=== PATIENT | female | born 1975 | race African-American/Black ===

== ENCOUNTER 2016-08-22 22:01 | Emergency (ER) ==
[2016-08-22 22:41] LABS: URINE SOURCE CLEAN CATCH
[2016-08-22 22:53] LABS: MANUAL DIFF NEEDED? NO
--- NOTE | 2016-08-22 22:54 | PROVIDER DOCUMENTATION ---
HPI-Abdominal Pain/GI Problem - General Chief Complaint: Abdominal Pain Stated Complaint: ABD PAIN Time Seen by Provider: 08/22/16 22:48 Allergies/Adverse Reactions: Patient Allergies Allergy/AdvReac Type Severity Reaction Status Date / Time No Known Allergies Allergy Verified 08/22/16 22:12 Home Medications: Home Medication List Medication Instructions Recorded Confirmed Last Taken Type No Home Medications 08/22/16 08/22/16 Unknown History - History of Present Illness-ABD Nature of Presenting Problems: 41 yof c/o Abd pain that started earlier today and has continued to get worse. Pt took laxative earlier and drank some warm apple cidar vinegar and honey with no results. Pt had a BM earlier today. Pt describes pain as a squeezing pain to the abdomen. Abdominal Pain Onset Location: reports: RUQ, epigastric Pain Radiation: reports: back Quality of Pain: reports: sharp, stabbing Severity in ED: reports: moderate Onset/Duration: reports: 3 days ago Timing: reports: still present, getting worse Activities at Onset: reports: none Exposure to sick contacts?: No Modifying Factors: improves with: nothing Associated Symptoms: reports: nausea, vomiting Last BM: this morning Dark Stools Present?: reports: none noticed Rectal Bleeding: reports: none Rectal Pain: reports: none Emesis Description: reports: none Bruising or Bleeding Gums?: No Similar Symptoms Previously?: No Recently seen or treated by another doctor?: No Review of Systems - Adult - REVIEW OF SYSTEMS - ADULT Constitutional: reports: see HPI. denies: no symptoms reported, chills, fever, fatique, night sweats, weight gain, weight loss, other Eyes: reports: no symptoms reported. denies: see HPI, discharge, dry eyes, decreased vision, blurred vision, double vision, eye pain, redness, other Ears, Nose, Mouth & Throat: reports: no symptoms reported. denies: see HPI, ear discharge, ear pain, hearing loss, tinnitus, epistaxis, sinus problem, nose pain, loose teeth, mouth/dental pain, mouth swelling, hoarseness, throat pain, throat swelling, other Cardiovascular: reports: no symptoms reported. denies: see HPI, chest pain, edema, heart murmur, irregular heart rate, orthopnea, palpitations, poor circulation, PND, syncope, other Respiratory: reports: no symptoms reported. denies: see HPI, chronic cough, cough, dyspnea on exertion, excessive sputum production, hemoptysis, pleurisy, shortness of breath, wheezing, other Gastrointestinal: reports: see HPI, abdominal pain. denies: no symptoms reported, hematemesis, constipation, diarrhea, difficulty swallowing, frequent heartburn, nausea, poor appetite, rectal bleeding, vomiting, other Genitourinary: reports: no symptoms reported. denies: see HPI, dysuria, discharge, frequency, flank pain, frequent UTI's, hematuria, hesitency, incontinence, urinary retention, urgency, other Musculoskeletal: reports: no symptoms reported. denies: see HPI, bone pain, back pain, frequent leg cramps, joint pain, joint swelling, muscle aches, muscle weakness, neck pain, other All Other Systems: Reviewed and Negative Past History - Adult - PAST MEDICAL HISTORY-ADULT Review of Records: reports: Old Records Reviewed, Nursing Assessment Review, Medications Reviewed, Social history reviewed & non-contributory. Major Childhood Illnesses: reports: denies history Cardiovascular: reports: denies history Respiratory: reports: denies history Gastrointestinal: reports: denies history Obstetrical/Gynecological: reports: denies history Genitourinary: reports: denies history Musculoskeletal: reports: denies history Neurological: reports: denies history Psychiatric: reports: denies history Endocrine/Immune: reports: denies history Other Conditions: reports: denies history - PRIOR SURGERIES/PROCEDURES Surgical/Procedure History: reports: other () - PRIOR HOSPITALIZATIONS Prior Hospitalizations: reports: for other non-related - IMMUNIZATION STATUS Childhood Immunizations: See Nurse Assessment Flu Vaccine: See Nurse Assessment - FAMILY HISTORY Family History: other (not contributory) Physical Exam-General - PHYSICAL EXAM-ADULT Initial Vital Signs Reviewed: Yes - CONSTITUTIONAL General Appearance: appears well, alert, no apparent distress. negative: mild distress, moderate distress, severe distress, cachetic, obese, thin, anxious, lethargic, slow to respond, obtunded, combative, other - EYES Eyes: PERRL/EOMI, pink conjunctivae. negative: fundi clear, no AV nicking, anisocoria, conjuctival exudate, EOM palsy, meningismus, pale conjunctivae, photophobia, sclera injected, scleral icterus, subconjunctival hemorrhage, sunken eyes, other - HEAD, EARS, NOSE, MOUTH & THROAT HENMT: normocephalic/atraumatic, moist mucous membranes, normal ENT inspection, TMs normal, pharynx normal. negative: angioedema, dental decay, hearing deficit , pharyngeal erythema, tonsillar exudate, TM abnormal, TM obscurred by cerumen, frontal tenderness, maxillary tenderness, other - NECK Neck: non-tender, full range of motion, supple, normal inspection. negative: Brudzinski's sign, carotid bruit, C-spine tenderness, limited range of motion, lymphadenopathy, meningismus, trachial deviation, tender lateral, tender midline , thyromegaly, other - RESPIRATORY Respiratory: chest non-tender, lungs clear, normal breath sounds, no pleuratic chest pain, no respiratory distress, no accessory muscle use. negative: respiratory distress, decreased breath sounds, accessory muscle use, crackles, rales, rhonchi, stridor, wheezing, dull on percussion, prolonged expiration, pain on inspiration, plerual rub, retractions, splinting, decreased rate, increased rate, crepitus, other - CARDIOVASCULAR Cardiovascular: normal peripheral pulses, regular rate, rhythm, no edema, no gallop, no JVD, no murmur. negative: JVD, bradycardia, tachycardia, diastolic murmur, systolic murmur, gallop/S3, gallop/S4, extra beats, friction rub, irregularly irregular, PMI displaced laterally, other - CHEST (BREASTS) Chest/Breast: deferred. negative: normal breast inspection, no masses/lumps, no tenderness, nipple discharge, tenderness, mass/lump noted, other - GASTROINTESTINAL (ABDOMEN) Abdominal Exam: normal bowel sounds, soft, no organomegaly, no pulsatile mass, tenderness, McBurney's point tenderness. negative: non tender, abdominal bruit , abnormal bowel sounds, distended, guarding, rigid, rebound, hernia, mass, hepatomegaly, spleenomegaly, Peterson's sign, obturator sign, prominent aortic pulsations, psoas, Rovsing's sign, other - GENITOURINARY Female Genitalia/Pelvic Exam: deferred Rectal Exam: deferred - LYMPHATIC Lymphatic: no adenopathy - MUSCULOSKELETAL Back Exam: normal inspection, no CVA tenderness, no vertebral tenderness. negative: CVA tenderness, decreased range of motion, ecchymosis, kyphosis, lordosis, muscle spasm, scoliosis, swelling, vertebral tenderness, other Extremity: normal range of motion, non-tender, normal gait, normal inspection, no pedal edema, no calf tenderness, normal capillary refill. negative: pelvis stable, abnormal NV exam, calf tenderness, deformity, erythema, inflammation, joint effusion, pulse deficit, pedal edema, slow capillary refill, swelling, tenderness, other - SKIN Integumentary: normal color, normal turgor, warm/dry. negative: abrasion(s), blanching, cyanosis, diaphoresis, decubitus, dependent lividity, ecchymosis, embolic lesions, erythema, signs of IVDA, jaundice, laceration(s), mottled, pallor, petechiae, purpura, rash, swelling, tenderness, warm, zoster-like rash, other - NEUROLOGIC Neurologic: grossly normal - PSYCHIATRIC Psych/Mental Status: oriented x 3 Progress - PLAN OF CARE/RESULTS Progress/Plan/Lab Results: Laboratory Tests 08/22/16 08/22/16 08/22/16 21:16 22:50 22:50 WBC 15.40 H RBC 4.58 Hgb 12.9 Hct 39.0 MCV 85.2 MCH 28.2 MCHC 33.1 RDW Std Deviation 13.6 Plt Count 393 MPV 9.7 Immature Gran % (Auto) 0.3 Neut % (Auto) 68.5 Lymph % (Auto) 23.0 [place] % (Auto) 6.4 Eos % (Auto) 1.4 Baso % (Auto) 0.4 Immature Gran # (Auto) 0.04 Neut # (Auto) 10.56 H Lymph # (Auto) 3.[address] [place] # (Auto) 0.99 H Eos # (Auto) 0.21 Baso # (Auto) 0.06 Sodium 139 Potassium 4.1 Chloride 102 Carbon Dioxide 27 Anion Gap 10 BUN 10 Creatinine 0.8 Estimated GFR/1.73 m2 > 60 BUN/Creatinine Ratio 13 Glucose 92 Calculated Osmolality 276 Calcium 9.4 Total Bilirubin 0.50 AST 42 H ALT 25 Alkaline Phosphatase 123 H Total Protein 7.0 Albumin 4.5 Globulin 3.0 Albumin/Globulin Ratio 2.0 Amylase 55 Lipase 23 Urine Source CLEAN CATCH Urine Color YELLOW Urine Clarity CLEAR Urine pH 7.0 Ur Specific [place] 1.010 Urine Protein NEGATIVE Urine Ketones NEGATIVE Urine Blood NEGATIVE Urine Nitrite NEGATIVE Urine Bilirubin NEGATIVE Urine Urobilinogen NORMAL Urine Microscopic RBC <10 Urine WBC TRACE A Urine Microscopic WBC <10 Ur Epithelial Cells <10 Urine Bacteria 2+ Urine Glucose NEGATIVE Orders Category Date Time Status NPO Diet 08/22/16 22:[address] ABD/PELVIS W/ IV CONT ONLY [CT] Stat Exams 08/22/16 22:54 Taken AMYLASE [CHEM] Stat Lab 08/22/16 22:50 Completed CBC WITH ELECTRONIC DIFF [HEME] Stat Lab 08/22/16 22:50 Completed COMPREHENSIVE METABOLIC PANEL [CHEM] Stat Lab 08/22/16 22:50 Completed LIPASE [CHEM] Stat Lab 08/22/16 22:[address] W/POSS RFLX CULT [URINALYSIS] Stat Lab 08/22/16 21:16 Completed URINE CULTURE [RM] Routine Lab 08/22/16 23:02 Ordered Hydromorphone [Dilaudid] Med 08/23/16 00:41 Discontinued 1 mg IV NOW ONE Ondansetron [Zofran] Med 08/23/16 00:41 Discontinued 4 mg IV NOW ONE Piperacil/Tazobact 3.375 gm/Ns [Zosyn 3.375 gm/Ns] 50 Med 08/23/16 00:19 Discontinued ml IV NOW Vital Signs Temp Pulse Resp BP Pulse Ox 08/23/16 00:25 97.3 F L 81 18 159/101 100 08/22/16 22:10 97.6 F 94 H 16 142/96 100 No Known Allergies Allergy (Verified 08/22/16 22:12) No Home Medications 08/22/16 Dietary Diet NPO Start TueAug 22 2212 Laboratory 08/22/16 08/22/16 08/22/16 22:50 22:50 21:16 WBC 15.40 H RBC 4.58 Hgb 12.9 Hct 39.0 MCV 85.2 MCH 28.2 MCHC 33.1 RDW Std Deviation 13.6 Plt Count 393 MPV 9.7 Immature Gran % (Auto) 0.3 Neut % (Auto) 68.5 Lymph % (Auto) 23.0 [place] % (Auto) 6.4 Eos % (Auto) 1.4 Baso % (Auto) 0.4 Immature Gran # (Auto) 0.04 Neut # (Auto) 10.56 H Lymph # (Auto) 3.[address] [place] # (Auto) 0.99 H Eos # (Auto) 0.21 Baso # (Auto) 0.06 Sodium 139 Potassium 4.1 Chloride 102 Carbon Dioxide 27 Anion Gap 10 BUN 10 Creatinine 0.8 Estimated GFR/1.73 m2 > 60 BUN/Creatinine Ratio 13 Glucose 92 Calculated Osmolality 276 Calcium 9.4 Total Bilirubin 0.50 AST 42 H ALT 25 Alkaline Phosphatase 123 H Total Protein 7.0 Albumin 4.5 Globulin 3.0 Albumin/Globulin Ratio 2.0 Amylase 55 Lipase 23 Urine Source CLEAN CATCH Urine Color YELLOW Urine Clarity CLEAR Urine pH 7.0 Ur Specific [place] 1.010 Urine Protein NEGATIVE Urine Ketones NEGATIVE Urine Blood NEGATIVE Urine Nitrite NEGATIVE Urine Bilirubin NEGATIVE Urine Urobilinogen NORMAL Urine Microscopic RBC <10 Urine WBC TRACE A Urine Microscopic WBC <10 Ur Epithelial Cells <10 Urine Bacteria 2+ Urine Glucose NEGATIVE - CT/MRI 1 CT Study: Abdomen Impression: Abnormal (Probable cholecystitis. Per radiologist.) - CONSULTS/PCP/HOSPITALIST Notification #1 *Consult/PCP/Hospitalist*: transfer Center Time Discussed: 00:45 Reason/Comments: Dr. Lunsford Consult Disposition: other (Transfer) Departure - Departure Time of Disposition Order: 00:58 DIAGNOSIS: Cholecystitis Disposition: OTHER 70 Certified Medical Emergency: Emergent Condition: Stable Referrals: None,PCP [Primary Care Provider] - Forms: Return to School/Parent Work Attestation - Physician/ NIKO Attestation Patient care was provided by Advanced Practice Provider:: Yes Advanced Practice Provider:: Minh Watt Advanced Practice Provider documentation review:: The Mid-level provider documentation, treatment plan and medical decision making was reviewed by the physician who agrees with all treatment and medical decision making by the [facility]. Physician Attestation - Physician Attestation I, the provider, attest to the following statement:: Minh Watt Physician documentation Attestation:: This documentation recorded by the scribe accurately reflects the service I personally performed and the decisions made by me.
[2016-08-22 23:00] LABS: BILIRUBIN URINE NEGATIVE (NEGATIVE); BLOOD URINE NEGATIVE (NEGATIVE); CLARITY CLEAR (CLEAR); COLOR YELLOW; GLUCOSE URINE NEGATIVE (NEGATIVE); LEUKOCYTES URINE TRACE (NEGATIVE); NITRITE URINE NEGATIVE (NEGATIVE); PROTEIN URINE NEGATIVE (NEGATIVE); UROBILINOGEN URINE NORMAL
[2016-08-22 23:01] LABS: URINE CULTURE PL NEEDED? YES; URINE EPITHELIAL CELLS <10 /HPF (<10); URINE RBC <10 /HPF (<10); URINE WBC <10 /HPF (<10)
[2016-08-22 23:05] LABS: BASO% 0.4 % (0.0-0.8); EOS# 0.21 X1000 (0.0-0.7); EOS% 1.4 % (0.0-10.0); HEMOGLOBIN 12.9 g/dL (12.0-16.0); IMM GRAN# 0.04 X1000 (0.0-0.04); IMM GRAN% 0.3 % (0.0-0.5); LYMPH# 3.54 X1000 (1.2-3.4); MCH 28.2 PG (27-31); MCHC 33.1 g/dL (33-37); MCV 85.2 FL (81-99); MONO# 0.99 X1000 (0.11-0.59); MONO% 6.4 % (1.7-9.3); MPV 9.7 FL (7.4-10.4); NEUT% 68.5 % (42.2-75.2); PLT 393 X1000 (130-400); RBC 4.58 XMIL (4.2-5.4)
[2016-08-22 23:23] LABS: AGAP 10; ALBUMIN 4.5 g/dL (3.5-5.0); ALKALINE PHOSPHATASE 123 U/L (32-104); AMYLASE 55 U/L (20-200); BUN 10 mg/dL (8-22); CALCIUM 9.4 mg/dL (8.8-10.2); CHLORIDE 102 mmol/L (98-107); COSMO 276; GOT 42 U/L (10-30); GPT 25 U/L (10-36); LIPASE 23 U/L (13-60); POTASSIUM 4.1 mmol/L (3.5-5.1); SODIUM 139 mmol/L (136-145); TCO2 27 mmol/L (25-35)
[2016-08-23] MEDS ORDERED: ZOSYN 3.375 GM/NS 50 ML IV ONE (00:19)
[2016-08-23 00:26] VITALS: BP 159/101
[2016-08-23] MEDS ORDERED: DILAUDID IV ONE (00:41)
[2016-08-23] MEDS ORDERED: ZOFRAN IV ONE (00:41)
--- NOTE | 2016-08-23 12:02 | Diag Imaging Result Document ---
PROCEDURE NAME: CT ABD/PELVIS W/ IV CONT ONLY - 08/22/2016 CT ABDOMEN AND PELVIS WITH IV CONTRAST ONLY: TECHNIQUE: Exam performed with intravenous contrast only per request of the referring provider. A dose reduction protocol was used. No comparison exam. FINDINGS: The visualized lung bases appear clear except for mild dependent atelectasis. The gallbladder is distended. The gallbladder zarate appear mildly thickened. There are no calcified gallstones identified. The possibility of cholecystitis cannot be excluded. There is slight prominence of central intrahepatic bile ducts. There is no pancreatic mass or inflammation identified. There are no other substantial abnormalities of the liver, spleen, or adrenal glands identified. The bilateral kidneys enhance homogeneously. There is no hydronephrosis. There are no substantially enlarged lymph nodes identified. There is no evidence of bowel obstruction. The appendix is not discretely visualized distinguishable from unopacified bowel. There is no pericecal inflammation identified however. There is no abscess identified. There is no free air. There is no substantial free fluid seen. IMPRESSION: 1. Distended gallbladder. Mildly thickened gallbladder zarate. No calcified gallstones seen. The possibility of cholecystitis cannot be excluded. Correlation with clinical evaluation is recommended. 2. No evidence of pancreatic mass or inflammation. 3. No bowel obstruction. There is no pericecal inflammation identified. No abscess. No free air. The on-call radiologist provided preliminary results at 12:03 a.m. on 08/23/2016.
== END 2016-08-23 01:40 | disposition other institution (70) ==
LOC: P.ED 22:01
DX: K81.9 Cholecystitis, unspecified (principal); R10.11 Right upper quadrant pain; R10.13 Epigastric pain; M54.9 Dorsalgia, unspecified; R11.2 Nausea with vomiting, unspecified
CPT/HCPCS: 74177; 80053; 81001; 82150; 83690; 85025; 87088; 96365; 96375; J1170; J2405; J2543; Q9967